=== PATIENT | male | born 1960 | race Hispanic/Latino ===

== ENCOUNTER → 2019-05-05 | Day surgery (SDC) | payer MEDICARE ==
[2019-04-21 16:01] LABS: BASOPHILS % 0.3 % (0.0-1.0); EOSINOPHILS # (AUTO) 0.1 (0.0-0.4); EOSINOPHILS % 0.5 % (0.0-6.0); HEMATOCRIT 38.2 % (38.2-49.6); HEMOGLOBIN 12.1 g/dL (14.0-18.0); LYMPHOCYTES # (AUTO) 1.8 (1.0-3.2); LYMPHOCYTES % 13.8 % (18.0-39.1); MEAN CORPUSCULAR HEMOGLOBIN 27.9 pg (28-32); MEAN CORPUSCULAR HGB CONC 31.7 g/dL (31-35); MONOCYTES # (AUTO) 0.8 (0.2-0.8); MONOCYTES % 6.4 % (4.4-11.3); NEUTROPHILS # (AUTO) 10.1 (2.1-6.9); NEUTROPHILS % 78.5 % (38.7-80.0); PLATELET COUNT 256 x10e3/uL (140-360); RED BLOOD COUNT 4.34 x10e6/uL (4.3-5.7); RED CELL DISTRIBUTION WIDTH 13.5 % (11.7-14.4)
[~2019-05-05] MED LIST: AMLODIPINE BESY10 MG PO; AMLODIPINE BESYL5 MG PO; ASPIRIN EC81 MG PO; AVODART0.5 MG PO; BACLOFEN10 MG PO; CLOPIDOGREL75 MG PO; FENTANYL CITRATE/PF 100MCG/2 ML INJ ONE; FERROUS SULFAT325 MG PO; FINASTERIDE5 MG PO; GABAPENTIN400 MG PO; GLIMEPIRIDE4 MG PO; HYDROCHLOROTHIA25 MG PO; JANUVIA100 MG PO; LISINOPRIL-HCT1 EAC1 PO; LISINOPRIL10 MG PO; LOSARTAN POTAS100 MG PO; METFORMIN HCL500 MG PO; METFORMIN HCL850 MG PO; METOPROLOL SUCC50 MG PO; METRONIDAZOLE500 MG PO; MIDAZOLAM HCL 2 MG/2 ML VIAL ONE; OMEPRAZOLE40 MG PO; PLAVIX75 MG PO; PRAVASTATIN SOD20 MG PO; PRAVASTATIN SOD40 MG PO; PROPOFOL IV EMULSION 10 MG/ML 50 ML VIAL ONE; SERTRALINE HCL100 MG PO; SMZ/TMP PO; TOPROL XL25 MG PO
--- OUTSIDE RECORDS SUMMARY | 2019-05-05 10:51 | XMS REPORT ---
[facility] Address Unknown Phone Unavailable Care Team Providers Care Application Manager Name Role Phone Unavailable Unavailable Payers Payer Name Policy Type Policy Number Effective Date Expiration Date Problems This patient has no known problems. Allergies, Adverse Reactions, Alerts Allergy Name Allergy Type Status Severity Reaction(s) Onset Date Inactive Date Treating Clinician Comments No Known Allergies DA Active U 2013-09-22 00:00:00 Medications This patient has no known medications.
[2019-05-05 14:25] VITALS: BP 123/80
== END | disposition home or self-care (01) ==
LOC: OR 10:49
PROVIDERS: ATTEND Internal Medicine Gastroenterology
DX: Z12.11 Encounter for screening for malignant neoplasm of colon (principal); D12.3 Benign neoplasm of transverse colon; D12.4 Benign neoplasm of descending colon; K31.7 Polyp of stomach and duodenum; K29.70 Gastritis, unspecified, without bleeding; K31.89 Other diseases of stomach and duodenum; R19.7 Diarrhea, unspecified; K44.9 Diaphragmatic hernia without obstruction or gangrene; K64.8 Other hemorrhoids; E11.9 Type 2 diabetes mellitus without complications; E78.5 Hyperlipidemia, unspecified; I10 Essential (primary) hypertension; F32.9 Major depressive disorder, single episode, unspecified; Z88.8 Allergy status to other drugs, medicaments and biological substances; Z01.810 Encounter for preprocedural cardiovascular examination; Z01.812 Encounter for preprocedural laboratory examination; Z79.4 Long term (current) use of insulin; Z79.02 Long term (current) use of antithrombotics/antiplatelets; Z80.0 Family history of malignant neoplasm of digestive organs
CPT/HCPCS: 36415 ×2; 43239; 45380; 45384; 82948; 85025; 88305; 88312; 93005; J2250; J2704; J3010; 45378

== ENCOUNTER → 2020-04-12 | Day surgery (SDC) | payer MEDICARE, OTHER ==
[2020-04-07 12:45] LABS: BASOPHILS # (AUTO) 0.1 (0.0-0.1); BASOPHILS % 0.5 % (0.0-1.0); EOSINOPHILS # (AUTO) 0.3 (0.0-0.4); EOSINOPHILS % 3.4 % (0.0-6.0); HEMATOCRIT 36.7 % (38.2-49.6); HEMOGLOBIN 11.3 g/dL (14.0-18.0); LYMPHOCYTES # (AUTO) 1.5 (1.0-3.2); LYMPHOCYTES % 16.1 % (18.0-39.1); MEAN CORPUSCULAR HEMOGLOBIN 26.2 pg (28-32); MEAN CORPUSCULAR HGB CONC 30.8 g/dL (31-35); MEAN CORPUSCULAR VOLUME 85.2 fL (81-99); MONOCYTES # (AUTO) 0.5 (0.2-0.8); MONOCYTES % 5.5 % (4.4-11.3); NEUTROPHILS # (AUTO) 7.1 (2.1-6.9); NEUTROPHILS % 74.2 % (38.7-80.0); PLATELET COUNT 265 x10e3/uL (140-360); RED BLOOD COUNT 4.31 x10e6/uL (4.3-5.7); RED CELL DISTRIBUTION WIDTH 13.8 % (11.7-14.4)
[2020-04-07 13:05] LABS: ANION GAP 14.7 mmol/L (8-16); BLOOD UREA NITROGEN 24 mg/dL (7-26); BUN/CREATININE RATIO 23 (6-25); CALCIUM 9.3 mg/dL (8.4-10.2); CARBON DIOXIDE 24 mmol/L (22-29); CHLORIDE 107 mmol/L (98-107); CREATININE, SERUM 1.04 mg/dL (0.72-1.25); EST GLOMERULAR FILTRATION RATE > 60 ML/MIN (60-); GLUCOSE 201 mg/dL (74-118); POTASSIUM 4.7 mmol/L (3.5-5.1); SODIUM 141 mmol/L (136-145)
[~2020-04-12] MED LIST changes: +LIDOCAINE HCL 2% LOCAL INJ 5 ML SDV VIAL INJ ONE; +PROBIOTIC & AC1 EACH PO; +PROPOFOL IV EMULSION 10 MG/ML 20 ML VIAL ONE; -PROPOFOL IV EMULSION 10 MG/ML 50 ML VIAL ONE
[2020-04-12 08:00] VITALS: BP 116/76
== END | disposition home or self-care (01) ==
LOC: OR 05:26
PROVIDERS: ATTEND Specialist
DX: T84.091A Other mechanical complication of internal left hip prosthesis, initial encounter (principal); E11.9 Type 2 diabetes mellitus without complications; I10 Essential (primary) hypertension; K21.9 Gastro-esophageal reflux disease without esophagitis; F41.9 Anxiety disorder, unspecified; F32.9 Major depressive disorder, single episode, unspecified; Z88.8 Allergy status to other drugs, medicaments and biological substances; Y83.8 Other surgical procedures as the cause of abnormal reaction of the patient, or of later complication, without mention of misadventure at the time of the procedure; Z96.643 Presence of artificial hip joint, bilateral; Z01.810 Encounter for preprocedural cardiovascular examination; Z01.812 Encounter for preprocedural laboratory examination; Z11.59 Encounter for screening for other viral diseases; Z79.84 Long term (current) use of oral hypoglycemic drugs; Z79.02 Long term (current) use of antithrombotics/antiplatelets
CPT/HCPCS: 20610; 36415 ×2; 77002; 80048; 82948; 85025; 87071; 87075; 87205; 93005; J2001; J2250; J2704; J3010; U0002; 76000

== ENCOUNTER 2020-07-12 07:31 | Inpatient (IN) | payer MEDICARE ==
[2020-07-07 09:22] LABS: BASOPHILS # (AUTO) 0.1 (0.0-0.1); BASOPHILS % 0.6 % (0.0-1.0); EOSINOPHILS # (AUTO) 0.3 (0.0-0.4); EOSINOPHILS % 4.1 % (0.0-6.0); HEMATOCRIT 34.9 % (38.2-49.6); HEMOGLOBIN 10.9 g/dL (14.0-18.0); LYMPHOCYTES # (AUTO) 1.8 (1.0-3.2); LYMPHOCYTES % 21.5 % (18.0-39.1); MEAN CORPUSCULAR HEMOGLOBIN 25.8 pg (28-32); MEAN CORPUSCULAR HGB CONC 31.2 g/dL (31-35); MEAN CORPUSCULAR VOLUME 82.5 fL (81-99); MONOCYTES # (AUTO) 0.8 (0.2-0.8); MONOCYTES % 9.2 % (4.4-11.3); NEUTROPHILS # (AUTO) 5.3 (2.1-6.9); NEUTROPHILS % 64.1 % (38.7-80.0); PLATELET COUNT 235 x10e3/uL (140-360); RED BLOOD COUNT 4.23 x10e6/uL (4.3-5.7); RED CELL DISTRIBUTION WIDTH 14.4 % (11.7-14.4)
[2020-07-07 09:41] LABS: ANION GAP 9.3 mmol/L (8-16); BLOOD UREA NITROGEN 18 mg/dL (7-26); BUN/CREATININE RATIO 19 (6-25); CARBON DIOXIDE 30 mmol/L (22-29); CHLORIDE 104 mmol/L (98-107); CREATININE, SERUM 0.95 mg/dL (0.72-1.25); EST GLOMERULAR FILTRATION RATE > 60 ML/MIN (60-); GLUCOSE 122 mg/dL (74-118); POTASSIUM 4.3 mmol/L (3.5-5.1); SODIUM 139 mmol/L (136-145)
[~2020-07-12] VITALS: Ht 180.3 cm; Wt 95.7 kg
[~2020-07-12 07:31] MED LIST changes: -FENTANYL CITRATE/PF 100MCG/2 ML INJ ONE; -LIDOCAINE HCL 2% LOCAL INJ 5 ML SDV VIAL INJ ONE; -MIDAZOLAM HCL 2 MG/2 ML VIAL ONE; +OMEGA 3 1,0001 EACH PO; -PROPOFOL IV EMULSION 10 MG/ML 20 ML VIAL ONE; +SODIUM CHLORIDE 0.9% 500ML 500 ML ONE; +TRANEXAMIC ACID 1,000 MG/10 ML ML ONE; +VANCOMYCIN HCL 1,000 MG ONE
[2020-07-12] MEDS ORDERED: CELECOXIB 200 MG CAP ONE (07:59)
[2020-07-12] MEDS ORDERED: DEXAMETHASONE SOD PHOS 10 MG/1 ML VIAL ONE (07:59)
[2020-07-12] MEDS ORDERED: GABAPENTIN 300 MG CAP ONE (07:59)
[2020-07-12] MEDS ORDERED: CEFAZOLIN SOD 1 GM/NS 50ML 100 ML IV ONE (07:59)
[2020-07-12] MEDS ORDERED: ROPIVACAINE 246.25 MG, EPINEPHRINE HCL 1:1000 1ML 0.5 MG, CLONIDINE HCL 0.08 MG, KETORO... INJ ONE ×5 (08:00)
[2020-07-12 08:36] LABS: INR 0.91; PARTIAL THROMBOPLASTIN TIME 29.3 seconds (23.8-35.5); PROTHROMBIN TIME 12.8 seconds (11.9-14.5)
[2020-07-12] MEDS ORDERED: VANCOMYCIN HCL 500 MG ONE (09:59)
[2020-07-12 11:14] LABS: HEMOGLOBIN 10.4 g/dL (14.0-18.0)
[2020-07-12] MEDS ORDERED: HYDROCODONE/APAP 5MG-325MG TAB PO PRN (12:15)
[2020-07-12] MEDS ORDERED: HYDROCODONE/APAP 7.5MG-325MG 1 EA TAB PO PRN (12:15)
[2020-07-12] MEDS ORDERED: SODIUM CHLORIDE 0.9% 1000ML 1,000 ML IV SCH (12:15)
[2020-07-12] MEDS ORDERED: DOCUSATE SODIUM 100 MG CAP PO PRN (12:15)
[2020-07-12] MEDS ORDERED: DIPHENHYDRAMINE HCL INJ 50 MG/ML VIAL IV PRN (12:15)
[2020-07-12] MEDS ORDERED: ONDANSETRON HCL INJ 2MG/ML 2ML 2 MG/ML VIAL IV PRN (12:15)
[2020-07-12] MEDS ORDERED: KETOROLAC TROMETHAMINE 30 MG/ML VIAL IV PRN (12:15)
[2020-07-12] MEDS ORDERED: ACETAMINOPHEN 650 MG SUPP PR PRN (12:15)
[2020-07-12] MEDS ORDERED: FENTANYL CITRATE/PF 100MCG/2 ML INJ ONE ×2 (12:50→19:48)
[2020-07-12] MEDS ORDERED: ROCURONIUM BROMIDE 10 MG/ML 5ML VIAL IV ONE (13:07)
[2020-07-12] MEDS ORDERED: NEOSTIGMINE 1 MG/ML 10ML VIAL ONE (13:07)
[2020-07-12] MEDS ORDERED: LIDOCAINE HCL 2% LOCAL INJ 5 ML SDV VIAL INJ ONE (13:07)
[2020-07-12] MEDS ORDERED: GLYCOPYRROLATE INJ 0.2 MG/ML VIAL ONE (13:07)
[2020-07-12] MEDS ORDERED: ONDANSETRON HCL INJ 2MG/ML 2ML 2 MG/ML VIAL ONE (13:07)
[2020-07-12] MEDS ORDERED: LIDOCAINE HCL 2% JELLY 5 ML TUBE ONE (13:07)
[2020-07-12] MEDS ORDERED: PROPOFOL IV EMULSION 10 MG/ML 20 ML VIAL ONE (13:07)
[2020-07-12] MEDS ORDERED: SEVOFLURANE INHAL SOLN 250 ML PEN BTL ONE (13:07)
[2020-07-12] MEDS ORDERED: CEFAZOLIN SOD 1 GM/NS 50ML 50 ML IV SCH (14:00)
[2020-07-12 15:30] VITALS: BP 122/61
[2020-07-12 16:32] VITALS: BP 112/68
[2020-07-12 16:56] LABS: ANION GAP 14.3 mmol/L (8-16); CALCIUM 7.8 mg/dL (8.4-10.2); CREATININE, SERUM 1.27 mg/dL (0.72-1.25); POTASSIUM 4.3 mmol/L (3.5-5.1)
[2020-07-12] MEDS ORDERED: CELECOXIB 100 MG CAP PO SCH (17:00)
[2020-07-12] MEDS: ASPIRIN 325 MG TAB PO SCH (18:04)
[2020-07-12] MEDS ORDERED: MIDAZOLAM HCL 2 MG/2 ML VIAL ONE (19:48)
[2020-07-12 19:57] VITALS: BP 133/63
[2020-07-12] MEDS: CEFAZOLIN SOD 1 GM/NS 50ML 50 ML IV SCH (20:00)
[2020-07-12] MEDS ORDERED: ZOLPIDEM TARTRATE 5 MG TAB PO PRN (21:00)
[2020-07-12 21:21] VITALS: BP 133/63
[2020-07-12] MEDS ORDERED: SODIUM CHLORIDE 0.9% 250ML 250 ML ONE (21:46)
[2020-07-13] VITALS: BP 121/63
[2020-07-13] MEDS: CEFAZOLIN SOD 1 GM/NS 50ML 50 ML IV SCH ×2 (03:49→11:41)
[2020-07-13 04:00] VITALS: BP 120/70
[2020-07-13] MEDS ORDERED: SITAGLIPTIN 100 MG TAB PO SCH (04:45)
[2020-07-13 05:54] LABS: ALANINE AMINOTRANSFERASE 17 IU/L (0-55); ALBUMIN 2.9 g/dL (3.5-5.0); ALKALINE PHOSPHATASE 50 IU/L (40-150); BLOOD UREA NITROGEN 33 mg/dL (7-26); BUN/CREATININE RATIO 32 (6-25); CALCIUM 7.5 mg/dL (8.4-10.2); CARBON DIOXIDE 21 mmol/L (22-29); CHLORIDE 102 mmol/L (98-107); CREATININE, SERUM 1.03 mg/dL (0.72-1.25); EST GLOMERULAR FILTRATION RATE > 60 ML/MIN (60-); GLUCOSE 328 mg/dL (74-118); SODIUM 132 mmol/L (136-145)
[2020-07-13 08:22] VITALS: BP 135/63
[2020-07-13 08:57] VITALS: BP 135/63
[2020-07-13] MEDS ORDERED: GABAPENTIN 400 MG CAP PO SCH (09:00)
[2020-07-13] MEDS ORDERED: FINASTERIDE 5 MG TAB PO SCH (09:00)
[2020-07-13] MEDS ORDERED: SERTRALINE HCL 100 MG TAB PO SCH (09:00)
[2020-07-13] MEDS ORDERED: CLOPIDOGREL BISULFATE 75 MG TAB PO SCH (09:00)
[2020-07-13] MEDS: ASPIRIN 325 MG TAB PO SCH (09:04)
[2020-07-13 11:55] VITALS: BP 145/67
[2020-07-13] MEDS ORDERED: ACETAMINOPHEN 1000 MG/100 ML IV PRN (12:15)
[2020-07-13] MEDS ORDERED: METOPROLOL SUCCINATE 50 MG TAB XL PO SCH (21:00)
[2020-07-13] MEDS ORDERED: AMLODIPINE BESYLATE 10 MG TAB PO SCH (21:00)
== END 2020-07-13 14:24 | disposition home or self-care (01) | DRG 468 ==
LOC: OR 07:31 → PACU V 12:10 → MED/SURG 15:09
PROVIDERS: ADMIT Specialist; ATTEND Specialist
PROC: 0SRB04Z Replacement of Left Hip Joint with Ceramic on Polyethylene Synthetic Substitute, Open Approach (ICD-10-PCS; principal; 2020-07-13)
PROC: 0SPB0JZ Removal of Synthetic Substitute from Left Hip Joint, Open Approach (ICD-10-PCS; 2020-07-13)
DX: T84.091A Other mechanical complication of internal left hip prosthesis, initial encounter (principal); Z96.641 Presence of right artificial hip joint; E11.9 Type 2 diabetes mellitus without complications; I10 Essential (primary) hypertension; Z88.8 Allergy status to other drugs, medicaments and biological substances; D64.9 Anemia, unspecified; N40.0 Benign prostatic hyperplasia without lower urinary tract symptoms; Z20.822 Contact with and (suspected) exposure to COVID-19; Z79.84 Long term (current) use of oral hypoglycemic drugs
CPT/HCPCS: 36415; 72170; 80048; 80053; 82948; 85014; 85018; 85025; 85610; 85730; 86850; 86900; 86920; 97139; C1713; C1776; J0171; J0690; J1100; J1885; J2001; J2250; J2405; J2710; J2795; J3010; J3370; J7040; J7050; U0002

== ENCOUNTER → 2020-12-06 | Outpatient (CLI) | payer MEDICARE ==
[~2020-12-06] MED LIST changes: +REGADENOSON 0.4 MG/5 ML SYR IV ONE; -SODIUM CHLORIDE 0.9% 500ML 500 ML ONE; -TRANEXAMIC ACID 1,000 MG/10 ML ML ONE; -VANCOMYCIN HCL 1,000 MG ONE
== END ==
LOC: RAD 09:44
PROVIDERS: ATTEND Internal Medicine
DX: R06.00 Dyspnea, unspecified (principal); R07.9 Chest pain, unspecified; R60.9 Edema, unspecified
CPT/HCPCS: 78452; 93017; 93306; 93922; 93925; A9502; J2785